=== PATIENT | female | born 1980 | race Caucasian/White ===

== ENCOUNTER 2021-11-13 12:07 | Emergency (ER) | payer BC ==
[2021-11-13 13:55] LABS: HEMOGLOBIN 12.1 gm/dl (12.3-15.3); RED BLOOD COUNT 4.43 M/UL (4.00-5.10); WHITE BLOOD COUNT 10.7 K/UL (4.5-11.0)
[2021-11-13 14:41] LABS: BUN/CREATININE RATIO 17 (0-10)
[2021-11-13] MEDS ORDERED: ASPIRIN CHEWABL81 MG PO (16:49)
[2021-11-13] MEDS ORDERED: NITROSTAT0.4 MG SL (16:50)
== END 2021-11-13 17:21 | disposition home or self-care (01) ==
LOC: ER1 12:07
PROVIDERS: Emergency Medicine
DX: R07.9 Chest pain, unspecified (principal); R06.02 Shortness of breath; M54.9 Dorsalgia, unspecified
CPT/HCPCS: 71045; 80053; 82550; 82553; 83880; 84484; 84703; 85025; 85379; 93005; 99285; Q9967